=== PATIENT | female | born 1990 | race Caucasian/White ===

== ENCOUNTER 2022-04-01 14:33 | Emergency (ER) | payer MEDICAID ==
[~2022-04-01] VITALS: Ht 152.4 cm; Wt 79.0 kg
[2022-04-01 14:41] VITALS: BP 121/71
== END 2022-04-01 18:07 | disposition left against medical advice (07) ==
LOC: ER 14:33
DX: Z53.21 Procedure and treatment not carried out due to patient leaving prior to being seen by health care provider (principal)